=== PATIENT | female | born 1980 | race Caucasian/White ===

== ENCOUNTER 2018-05-29 13:53 | Emergency (ER) | payer MEDICAID, SELFPAY ==
[2018-05-29 13:54] VITALS: BP 127/89; PULSE 110; RESP 16; TEMP 36.2; O2SAT 99; BMI 24.4
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
[2018-05-29] MEDS: predniSONE 20 MG Tablet 40 MG PO (14:17)
[2018-05-29 14:27] VITALS: PULSE 116; RESP 18; O2SAT 99
== END 2018-05-29 14:32 | disposition home or self-care (01) ==
LOC: ED 14:07
PROVIDERS: Emergency Provider Emergency Medicine
DX: L30.9 Dermatitis, unspecified (principal); Z72.0 Tobacco use
CPT/HCPCS: 99283

== ENCOUNTER 2019-02-15 18:12 | Emergency (ER) | payer MEDICAID, SELFPAY ==
[2019-02-15] VITALS (7 sets, daily range): BP systolic 92–146; BP diastolic 54–90; PULSE 82–112; RESP 16–18; TEMP 36.4–36.9; O2SAT 98–100; BMI 26.7
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
[2019-02-15 18:56] LABS: Absolute Lymphocyte Count 2.39 X10^3/uL (0.83-4.51); Absolute Neutrophil Count 4.6 X10^3/uL (2.0-7.7); Basophil# 0.03 X10^3/uL; Basophil% 0.4 % (0-1); Eosinophil# 0.08 X10^3/uL; Hematocrit 39.4 % (37-47); Hemoglobin 12.3 g/dL (12.0-15.0); Lymphocyte # 2.39 X10^3/ul (4.0); Lymphocyte % 31.2 % (19-41); Mean Corp Hgb Conc 31.2 g/dL (32-36); Mean Corpuscular Hgb 28.9 pg (27.0-32.0); Mean Corpuscular Volume 92.7 fL (81-99); Mean Platelet Vol. 10.1 fl (6.2-12.0); Monocyte% 6.5 % (0-10); NRBC Flagged by Analyzer 0 % (0-5); Neutrophil # 4.64 X10^3/uL (2.7-7.7); Neutrophil % 60.6 % (47-70); Platelet Count 277 K/mm3 (150-450); RBC Distribution Width CV 13.6 % (11.6-14.6); RBC Distribution Width SD 45.9 fl (35.1-43.9); Red Blood Count 4.25 M/mm3 (4.2-5.4); White Blood Count 7.7 K/mm3 (4.4-11.0)
[2019-02-15 18:57] LABS: Amphetamine Urine VISTA POSITIVE (<1000 ng/mL); Barbiturate Urine VISTA NEGATIVE (< 200 ng/mL); Benzodiazepine Urine VISTA NEGATIVE (< 200 ng/mL); Cocaine Urine VISTA NEGATIVE (< 300 ng/mL); Ecstacy Urine VISTA NEGATIVE (< 500 ng/mL); Methadone Urine VISTA NEGATIVE (< 300 ng/mL); PCP Urine VISTA NEGATIVE (< 25 ng/mL); THC Urine VISTA NEGATIVE (< 50 ng/mL); Vista UDS pH Range 6
[2019-02-15 19:44] LABS: Internal QC Validated? YES +Cl - CLEAR BKGD; Pregnancy, Serum, hCG Quali. NEGATIVE Negative
[2019-02-15 19:47] LABS: Anion Gap 4 (5-15); BUN 10 mg/dL (7-18); BUN/Creat Ratio 13.5 RATIO (10-20); Calcium,Total 9.5 mg/dL (8.5-10.1); Chloride 106 mmol/L (98-107); Creatinine, Serum 0.74 mg/dL (0.55-1.02); EST Glomerular Filtration Rate 93 mL/min (>60); Est Glom Filt Rate - Afr Amer 113 mL/min (>60); Estimated Creatinine Clearance 97.44 ml/min; Glucose 70 mg/dL (74-106); Potassium 4.1 mmol/L (3.5-5.1); Sodium Level 140 mmol/L (136-145)
[2019-02-15 20:01] LABS: Bedside Glucose 109 mg/dL (70-110)
--- NOTE | 2019-02-15 20:05 | NURSING ---
BEEN TRYING TO GET A HOLD OF SOMEONE FROM THE [facility] FOR THE PAST 30 MINUTES
--- NOTE | 2019-02-15 21:16 | NURSING ---
FINALLY GOT A HOLD OF SALOMON FROM [facility]
--- NOTE | 2019-02-16 00:20 | ED.RN ---
UPDATE GIVEN TO SUZANNA ON [facility] THAT RIDE WILL BE AT OUR FACILITY IN A LITTLE OVER AN HOUR. RN VERBALIZED UNDERSTANDING. NO FURTHER QUESTIONS OR CONCERNS
[2019-02-16 00:58] VITALS: RESP 17
[2019-02-16 01:15] VITALS: BP 116/74; PULSE 82; RESP 18; O2SAT 100
[2019-02-16 01:16] VITALS: BP 116/74; PULSE 82; RESP 18; O2SAT 100
== END 2019-02-16 01:18 ==
LOC: ED 18:56
PROVIDERS: Emergency Provider Emergency Medicine
DX: R45.851 Suicidal ideations (principal); F32.9 Major depressive disorder, single episode, unspecified; F15.90 Other stimulant use, unspecified, uncomplicated; Z72.0 Tobacco use
CPT/HCPCS: 80048; 80307; 80320; 82962; 84703; 85025; 99285; G0480

== ENCOUNTER 2019-04-02 17:38 | Emergency (ER) | payer MEDICAID, SELFPAY ==
[2019-02-15 18:13] VITALS: BMI 26.7
[2019-04-02 17:40] VITALS: BP 110/78; PULSE 105; RESP 20; TEMP 36.4; O2SAT 98; BMI 30.9
[2019-04-02 18:29] VITALS: O2SAT 98
[2019-04-02 18:40] VITALS: BP 119/98; PULSE 86; RESP 16; O2SAT 97
--- NOTE | 2019-04-02 19:00 | RAD_ITS ---
STUDY: X-RAY CHEST REASON FOR EXAM: Female, 39 years old. COUGH TECHNIQUE: PA and lateral views of the chest. COMPARISON: None. FINDINGS: Cardiac silhouette unremarkable. Pulmonary vascularity unremarkable. Aorta unremarkable. No focal airspace opacities. No pleural effusions. Upper abdomen unremarkable. Osseous structures intact. No pneumothorax. RAD/Chest PA and Lateral IMPRESSION: No acute cardiopulmonary findings Electronically Signed: Kurt Cotton, at 19:56 EST Tel , Service support ,
--- NOTE | 2019-04-02 19:12 | ED.DCSUM_ITS ---
- ER Visit Summary Date of Service: 04/02/19 Chief Complaint: Cough History of Present Illness: The patient is a 39 F with no primary care physician. She reports she has a cough began 2 days ago. Is productive yellow sputum without blood. She reports that she had a similar episode 2 weeks ago and was placed on a Z-Willis, albuterol MDI, and 10 days of steroids. She does smoke a pack per day. Physical Examination: Vitals: Stable. Afebrile. General: Well-nourished and well-developed. Head: Normocephalic atraumatic. Neck: Supple, no lymphadenopathy. No JVD. Nontender. Cardiovascular: Regular rate and rhythm. No murmurs. Respiratory: No respiratory distress. Clear to auscultation bilaterally. Abdominal: Soft, nontender, nondistended, normal bowel sounds. No guarding, rebound, or peritoneal signs. Back: Nontender. Extremities: Nontender, no edema. Skin: Normal color, no rash. Neurologic: Alert and oriented ?3. Cranial nerves II through XII are intact. Normal strength and sensation. Psych: Normal affect. Test Results: Chest x-ray is normal. Emergency Department Course and Treatment: Patient is resting comfortably. She is not wheezing at this time. Treatment Plan: I do not think at a another course of antibiotics is indicated. However, she is given a prescription for another taper of prednisone and another albuterol MDI. Instructed follow-up Dr. Acosta in 1 week if not improving. Return to the emergency department for any worsening symptoms. Disposition: To home in improved and stable condition. Impression: 1. URI. 2. Tobacco abuse. This note was generated with [employer] dictation software. It may contain incorrect words, spelling, and punctuation that were not noted in review of the chart prior to signing ED Disposition - Plan for ED Patient: Disposition: Home or Assisted Living Instructions: BRONCHITIS, No Antibiotic (Adult) Prescriptions: Prednisone 10 mg PO DAILY #63 tab Prescription Printed Albuterol Inhaler [Ventolin Hfa] 1 - 2 puff INHALATION Q4H PRN PRN #1 inhaler PRN Reason: Wheezing Prescription Printed Referrals: Shena Acosta DO [STAFF PHYSICIAN] - 1 Week if not improving
[2019-04-02 19:22] VITALS: RESP 16
--- NOTE | 2019-04-02 19:22 | ED.RN ---
REVIEWED D/C INSTRUCTIONS, FOLLOW UP CARE, PRESCRIPTIONS, AND S/S THAT WOULD WARRANT A RETURN TO THE ED WITH PT. PT VERBALIZED AN UNDERSTANDING AND DENIES FURTHER QUESTIONS FOR THIS RN PT SKIN P/W/D, RESP EVEN AND UNLABORED, PT A&O X 3, NO DISTRESS NOTED. PT AMBULATED OUT OF ED, GAIT STEADY.
== END 2019-04-02 19:24 | disposition home or self-care (01) ==
LOC: ED 18:46
PROVIDERS: Emergency Provider Emergency Medicine
DX: J06.9 Acute upper respiratory infection, unspecified (principal); F31.9 Bipolar disorder, unspecified; F20.9 Schizophrenia, unspecified; Z79.899 Other long term (current) drug therapy; F17.200 Nicotine dependence, unspecified, uncomplicated
CPT/HCPCS: 71046; 99282

== ENCOUNTER 2019-10-22 14:15 | Emergency (ER) | payer MEDICAID, SELFPAY ==
[2019-10-22 14:16] VITALS: BP 141/73; PULSE 94; RESP 16; TEMP 36.6; O2SAT 100; BMI 33.3
[2019-10-22 14:22] VITALS: BP 141/73; PULSE 94; RESP 16; TEMP 36.6; O2SAT 100; BMI 33.3
--- NOTE | 2019-10-22 14:31 | ED.VISSUMM ---
- ER Visit Summary Date of Service: 10/22/19 Chief Complaint: Back pain History of Present Illness: The patient is a 39 F who presents with back pain. She has had this for 2 days. Is on the left lower side of her back. It radiates on her left leg. Movement makes it worse. Nothing really makes it better. She tried no medications for it at home. She denies any fevers. She denies any previous back issues. No bowel or bladder incontinence. Physical Examination: Vital signs reviewed. HEENT exam unremarkable. Heart is regular rate and rhythm without murmurs. Lungs are clear to auscultation. Abdomen is soft and nontender. Back exam shows tenderness in the left lumbar paraspinal region. No midline tenderness. Extremities reveal no edema. Skin exam normal. Neurologic exam normal. Test Results: None performed Emergency Department Course and Treatment: Patient will be treated with Norflex and Toradol here. I will send her home with steroids. I will also give her naproxen and Flexeril. She will follow-up with her PCP. Treatment Plan: [] Disposition: Discharge Impression: Sciatica, left This note was generated with [employer] dictation software. It may contain incorrect words, spelling, and punctuation that were not noted in review of the chart prior to signing ED Disposition - Plan for ED Patient: Disposition: Home or Assisted Living Instructions: ED LUMBAR SPRAIN/STRAIN Prescriptions: Prednisone [Deltasone] 40 mg PO DAILY #10 tab Transmission Status: Pending to [facility] cycloBENZAPRine HCl [Flexeril] 10 mg PO TID PRN #20 tab PRN Reason: Muscle Spasm Transmission Status: Pending to [facility] Naproxen [Naprosyn] 500 mg PO BID PRN #20 tab Transmission Status: Pending to [facility] Referrals: Care Physician,No Primary [Primary Care Provider] -
[2019-10-22] MEDS: Ketorolac 30 MG/ML Syringe IM (14:52)
[2019-10-22] MEDS: Orphenadrine 60 MG/2 ML Ampul IM (14:53)
[2019-10-22 15:40] VITALS: BP 130/79; PULSE 81; RESP 20; O2SAT 99
== END 2019-10-22 15:41 | disposition home or self-care (01) ==
LOC: ED 14:43
PROVIDERS: Emergency Provider Emergency Medicine
DX: M54.32 Sciatica, left side (principal); F17.200 Nicotine dependence, unspecified, uncomplicated
CPT/HCPCS: 96372; 99282

== ENCOUNTER 2019-10-29 12:37 | Emergency (ER) | payer MEDICAID, SELFPAY ==
[2019-10-29] VITALS (9 sets, daily range): BP systolic 134–158; BP diastolic 84–88; PULSE 63–102; RESP 16–18; TEMP 36.6; O2SAT 98–99; BMI 35.8
--- NOTE | 2019-10-29 13:02 | EKG12_ITS ---
Test Reason : MENTAL CLEARANCE Blood Pressure : / mmHG Vent. Rate : 062 BPM Atrial Rate : 062 BPM P-R Int : 154 ms QRS Dur : 082 ms QT Int : 408 ms P-R-T Axes : 030 009 017 degrees QTc Int : 414 ms Normal sinus rhythm Normal ECG Confirmed by ADELINE IRCO ([id number]), research editor RON RUIZ ([id number]) on 10/31/2019 9:00:55 AM Referred By: ANGUS Confirmed By:ADELINE RICO
--- NOTE | 2019-10-29 13:23 | ED.VIS.GEN ---
History of Present Illness Chief Complaint: Suicidal Informant: Patient Narrative: 39-year-old female with history of bipolar disorder presenting today with suicidal ideation. She states that she has been thinking about taking her own life by overdosing on her home medications which include Vistaril and Abilify. She states that she is currently depressed because she cannot see her son who is been [facility] [place] [facility]. She has not seen them for 2 months. They are not allowing visitations but she has been able to call. She states she has a significant history of suicide attempt about a year ago in which she tried to both cut her throat and then hang herself. She currently denies doing any drugs or alcohol. She has not made any attempts thus far over the last [address] feeling [address]. No homicidal ideation. Past Medical History - Allergies and Home Meds Allergies/Adverse Reactions: Allergies Penicillins [PCN] Allergy (Verified 10/29/19 12:44) Other venom-honey bee [bee venom (honey bee)] Allergy (Verified 10/29/19 12:44) Anaphylaxis pine Allergy (Uncoded 10/29/19 12:44) Rash tape Allergy (Uncoded 10/29/19 12:44) Rash Primary Care Physician: Care Physician,No Primary [Primary Care Provider] - Past Medical History: - - Bipolar disorder Surgical History: noncontributory Lives: Alone Smoking Status: Current every day smoker Alcohol: None Drugs: None Review of Systems General: Denies: Chills, Fever, Sweats Eyes: Denies: Visual changes - bilaterally, Diplopia ENT: Denies: Rhinorrhea, Sore throat Cardiovascular: Denies: Chest pain, Palpitations Respiratory: Denies: Dyspnea, Cough, Dyspnea on exertion Gastrointestinal: Denies: Abdominal pain, Nausea, Vomiting, Diarrhea, Melena, Hematochezia Genitourinary: Denies: Dysuria, Hematuria, Frequency Musculoskeletal: Denies: Back pain, Extremity Pain Skin: Denies: Rash, Wounds Psych: Reports: Suicidal thoughts, Suicidal ideations Physical Exam Vital Signs/Narrative: Vital Signs Temp Pulse Resp BP Pulse Ox 10/29/19 12:38 97.9 F 102 H 18 158/88 H 98 Inital Vital Signs reviewed: Yes General: Well nourished, No Acute Distress Head: Normocephalic, Atraumatic Eyes: Perrl ENT: Moist mucous membranes, No rhinorrhea Cardiovascular: Regular rate, Regular rhythm Respiratory: No distress, CTA bilaterally Abdomen: Soft Extremities: Nontender, No edema Skin: Normal color, No rash Neurological: Alert, Oriented x3 Psychological: - - Admits to suicidal thoughts with a plan to take pills. No homicidal ideation Diagnostic/Tx/Re-eval Clinical Impression(s) from Imaging Studies Chest X-Ray 10/29/19 13:35 IMPRESSION: Normal x-ray examination of the chest. Electronically Signed: Moisés Black, at 14:07 EDT , Service support , Laboratory Data 10/29/19 10/29/19 10/29/19 12:55 13:10 13:10 WBC 5.3 RBC 4.41 Hgb 12.6 Hct 40.1 MCV 90.9 MCH 28.6 MCHC 31.4 L RDW Std Deviation 45.7 H RDW Coeff of Megan 13.6 Plt Count 265 MPV 10.3 Immature Gran % (Auto) 0.600 Neut % (Auto) 55.1 Lymph % (Auto) 34.8 Jewell % (Auto) 6.7 Eos % (Auto) 2.1 Baso % (Auto) 0.7 Absolute Neuts (auto) 2.9 Absolute Lymphs (auto) 1.86 Nucleated RBC % 0 Sodium 141 Potassium 4.1 Chloride 111 H Carbon Dioxide 26.0 Anion Gap 4 L BUN 7 Creatinine 0.65 Estim Creat Clear Calc 101.34 Est GFR (MDRD) Af Amer 130 Est GFR (MDRD) Non-Af 107 BUN/Creatinine Ratio 10.7 Glucose 93 Calcium 8.7 Serum , Qual Urine Opiates Screen NEGATIVE Urine Methadone Screen NEGATIVE Ur Barbiturates Screen NEGATIVE Ur Phencyclidine Scrn NEGATIVE Ur Amphetamines Screen NEGATIVE U Methamphetamin-MDMA NEGATIVE U Benzodiazepines Scrn NEGATIVE Urine Cocaine Screen NEGATIVE U Cannabinoids Screen NEGATIVE Ur Drug Screen Comment Ethyl Alcohol 10/29/19 10/29/19 13:10 13:10 WBC RBC Hgb Hct MCV MCH MCHC RDW Std Deviation RDW Coeff of Megan Plt Count MPV Immature Gran % (Auto) Neut % (Auto) Lymph % (Auto) Jewell % (Auto) Eos % (Auto) Baso % (Auto) Absolute Neuts (auto) Absolute Lymphs (auto) Nucleated RBC % Sodium Potassium Chloride Carbon Dioxide Anion Gap BUN Creatinine Estim Creat Clear Calc Est GFR (MDRD) Af Amer Est GFR (MDRD) Non-Af BUN/Creatinine Ratio Glucose Calcium Serum , Qual NEGATIVE Urine Opiates Screen Urine Methadone Screen Ur Barbiturates Screen Ur Phencyclidine Scrn Ur Amphetamines Screen U Methamphetamin-MDMA U Benzodiazepines Scrn Urine Cocaine Screen U Cannabinoids Screen Ur Drug Screen Comment Ethyl Alcohol 6.0 - Rhythm Strip Rhythm Strip: Sinus Rhythm Rate: 62 - Medical Decision Making Patient presents with suicidal ideation with history of attempt. She does threaten to take her home medications and overdose. She has no homicidal ideation. Her blood work is normal. EKG is normal sinus rhythm without signs of ischemia. Urine toxicology is negative. Chest x-ray is normal. In the patient's history of suicide attempt and current plan I believe the patient needs to be inpatient. I did fill out a pink slip. Patient was kept on suicide precautions. Patient at this time is medically cleared for psychiatric facility. Impression: 1. Suicidal ideation ED Disposition - Plan for ED Patient: Disposition: Psychiatric Hospital or Unit Referrals: Care Physician,No Primary [Primary Care Provider] -
[2019-10-29 13:28] LABS: Absolute Lymphocyte Count 1.86 X10^3/uL (0.83-4.51); Absolute Neutrophil Count 2.9 X10^3/uL (2.0-7.7); Basophil# 0.04 X10^3/uL; Basophil% 0.7 % (0-1); Eosinophil# 0.11 X10^3/uL; Eosinophils% 2.1 % (0-5); Hematocrit 40.1 % (37-47); Hemoglobin 12.6 g/dL (12.0-15.0); Lymphocyte # 1.86 X10^3/ul (4.0); Lymphocyte % 34.8 % (19-41); Mean Corp Hgb Conc 31.4 g/dL (32-36); Mean Corpuscular Hgb 28.6 pg (27.0-32.0); Mean Corpuscular Volume 90.9 fL (81-99); Mean Platelet Vol. 10.3 fl (6.2-12.0); Monocyte# 0.36 X10^3/uL; Monocyte% 6.7 % (0-10); NRBC Flagged by Analyzer 0 % (0-5); Neutrophil # 2.94 X10^3/uL (2.7-7.7); Neutrophil % 55.1 % (47-70); Platelet Count 265 K/mm3 (150-450); RBC Distribution Width CV 13.6 % (11.6-14.6); RBC Distribution Width SD 45.7 fl (35.1-43.9); Red Blood Count 4.41 M/mm3 (4.2-5.4); White Blood Count 5.3 K/mm3 (4.4-11.0)
[2019-10-29 13:32] LABS: Amphetamine Urine VISTA NEGATIVE (<1000 ng/mL); Barbiturate Urine VISTA NEGATIVE (< 200 ng/mL); Benzodiazepine Urine VISTA NEGATIVE (< 200 ng/mL); Cocaine Urine VISTA NEGATIVE (< 300 ng/mL); Ecstacy Urine VISTA NEGATIVE (< 500 ng/mL); Methadone Urine VISTA NEGATIVE (< 300 ng/mL); PCP Urine VISTA NEGATIVE (< 25 ng/mL); THC Urine VISTA NEGATIVE (< 50 ng/mL); Vista UDS pH Range 6
[2019-10-29 13:34] LABS: Internal QC Validated? YES +Cl - CLEAR BKGD; Pregnancy, Serum, hCG Quali. NEGATIVE Negative
--- NOTE | 2019-10-29 13:35 | RAD_ITS ---
STUDY: X-RAY CHEST REASON FOR EXAM: Female, 39 years old. Medical clearance for mental health TECHNIQUE: Single AP portable view of the chest. COMPARISON: Comparison is made with prior study dated 10/01/2019 FINDINGS: The lungs are clear and expanded. There is no demonstrated pleural abnormality. Normal size heart. Normal mediastinum and fidelia. Normal visualized pulmonary arteries. Normal visualized aortic arch and descending thoracic aorta. Normal visualized thoracic spine. Normal visualized ribs, clavicles, and shoulders. There is no demonstrated abnormality of the visualized soft tissue structures of the upper abdomen. RAD/Chest 1 View (Portable) IMPRESSION: Normal x-ray examination of the chest. Electronically Signed: Moisés Black, at 14:07 EDT , Service support ,
[2019-10-29 13:36] LABS: Anion Gap 4 (5-15); BUN 7 mg/dL (7-18); BUN/Creat Ratio 10.7 RATIO (10-20); Calcium,Total 8.7 mg/dL (8.5-10.1); Chloride 111 mmol/L (98-107); Creatinine, Serum 0.65 mg/dL (0.55-1.02); EST Glomerular Filtration Rate 107 mL/min (>60); Est Glom Filt Rate - Afr Amer 130 mL/min (>60); Estimated Creatinine Clearance 101.34 ml/min; Glucose 93 mg/dL (74-106); Potassium 4.1 mmol/L (3.5-5.1); Sodium Level 141 mmol/L (136-145)
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
--- NOTE | 2019-10-29 14:45 | CM.ED ---
SOCIAL WORK Referral called and faxed to [facility]. Awaiting acceptance at this time. Zachariah Martin, EVENTS TRAFFIC CONTROLLER, CHEESE SPRAYER
--- NOTE | 2019-10-29 15:52 | CM.ED ---
SOCIAL WORK Updated by intake at [facility] on limited beds. Referral faxed and called to [facility] at [facility]. Awaiting acceptance at this time.
--- NOTE | 2019-10-29 17:05 | CM.ED ---
SOCIAL WORK Patient accepted to [facility] by Dr. Sánchez to the [facility] Unit. Nurse to call report to . Verified [place] [facility] has been completed for [facility], date and time. [facility] to set up transport. Staff and patient updated. Zachariah Martin, AIRCRAFT INSTRUMENT ENGINEER, SHOP FITTER
--- NOTE | 2019-10-29 17:15 | NURSING ---
CALLED PHYSICANS, ETA IS 20 MIN
--- NOTE | 2019-10-29 17:22 | NURSING ---
[facility] CALLED. ETA IS NOW ABOUT 183
== END 2019-10-29 18:44 ==
PROVIDERS: Emergency Provider Student in an Organized Health Care Education/Training Program
DX: R45.851 Suicidal ideations (principal); F17.200 Nicotine dependence, unspecified, uncomplicated; Z91.5 Personal history of self-harm
CPT/HCPCS: 36415; 71045; 80048; 80307; 80320; 84703; 85025; 93005; 99285; G0480

== ENCOUNTER 2019-11-13 19:50 | Emergency (ER) | payer MEDICAID, SELFPAY ==
[2019-10-29 12:38] VITALS: BMI 35.8
[2019-11-13 19:50] VITALS: BP 140/80; PULSE 118; RESP 18; TEMP 36.6; O2SAT 98; BMI 34.9
[2019-11-13 20:59] VITALS: RESP 16
[2019-11-13 21:08] LABS: Absolute Lymphocyte Count 3.09 X10^3/uL (0.83-4.51); Absolute Neutrophil Count 6.5 X10^3/uL (2.0-7.7); Basophil# 0.05 X10^3/uL; Basophil% 0.5 % (0-1); Eosinophil# 0.08 X10^3/uL; Eosinophils% 0.8 % (0-5); Hematocrit 38.6 % (37-47); Hemoglobin 12.5 g/dL (12.0-15.0); Lymphocyte # 3.09 X10^3/ul (4.0); Lymphocyte % 29.9 % (19-41); Mean Corp Hgb Conc 32.4 g/dL (32-36); Mean Corpuscular Hgb 29.3 pg (27.0-32.0); Mean Corpuscular Volume 90.4 fL (81-99); Mean Platelet Vol. 10.2 fl (6.2-12.0); Monocyte# 0.63 X10^3/uL; Monocyte% 6.1 % (0-10); NRBC Flagged by Analyzer 0 % (0-5); Neutrophil # 6.45 X10^3/uL (2.7-7.7); Neutrophil % 62.2 % (47-70); Platelet Count 308 K/mm3 (150-450); RBC Distribution Width CV 13.6 % (11.6-14.6); Red Blood Count 4.27 M/mm3 (4.2-5.4); White Blood Count 10.4 K/mm3 (4.4-11.0)
[2019-11-13 21:09] LABS: Alcohol, Blood (Medical)-Serum < 3.0 mg/dL
[2019-11-13 21:11] LABS: Anion Gap 7 (5-15); BUN 18 mg/dL (7-18); BUN/Creat Ratio 18.3 RATIO (10-20); Calcium,Total 9.1 mg/dL (8.5-10.1); Chloride 110 mmol/L (98-107); Creatinine, Serum 0.98 mg/dL (0.55-1.02); EST Glomerular Filtration Rate 67 mL/min (>60); Est Glom Filt Rate - Afr Amer 81 mL/min (>60); Estimated Creatinine Clearance 70.04 ml/min; Glucose 120 mg/dL (74-106); Potassium 3.7 mmol/L (3.5-5.1); Sodium Level 141 mmol/L (136-145)
[2019-11-13 21:12] LABS: Amphetamine Urine VISTA NEGATIVE (<1000 ng/mL); Barbiturate Urine VISTA NEGATIVE (< 200 ng/mL); Benzodiazepine Urine VISTA NEGATIVE (< 200 ng/mL); Cocaine Urine VISTA NEGATIVE (< 300 ng/mL); Ecstacy Urine VISTA POSITIVE (< 500 ng/mL); Methadone Urine VISTA NEGATIVE (< 300 ng/mL); PCP Urine VISTA NEGATIVE (< 25 ng/mL); THC Urine VISTA NEGATIVE (< 50 ng/mL); Vista UDS pH Range 5
[2019-11-13 21:15] LABS: Internal QC Validated? YES +Cl - CLEAR BKGD; Pregnancy, Serum, hCG Quali. NEGATIVE Negative
[2019-11-13 21:47] VITALS: RESP 16
[2019-11-13 22:26] VITALS: RESP 18
--- NOTE | 2019-11-13 22:39 | ED.RN ---
crisis paged to see patient at this time
[2019-11-13 23:02] VITALS: BP 136/70; PULSE 95; RESP 20; O2SAT 98
--- NOTE | 2019-11-13 23:28 | ED.RN ---
crisis called back and they are aware of the patient. there is one patient ahead of her at this time
[2019-11-14] VITALS (12 sets, daily range): BP systolic 105–120; BP diastolic 72–78; PULSE 82–86; RESP 14–20; O2SAT 97–99
--- NOTE | 2019-11-14 00:47 | ED.DCSUM_ITS ---
- ER Visit Summary Date of Service: 11/14/19 Chief Complaint: Suicidal ideation History of Present Illness: The patient is a 39 F presenting with suicidal ideation. Patient states this started today. She states she has been under a lot of stress. States her child was recently taken away from his dad. She has plan to overdose. She was admitted recently to a psychiatric facility in [place]. She was discharged last week. She has a history of previous suicide attempt with hanging 1 year ago. She states her medication is not helping. She denies other complaints. Physical Examination: Vitals are stable. Patient is afebrile. Alert no acute distress. HEENT exam is unremarkable. Neck is supple. Lungs are clear and equal bilaterally. Heart is regular rate and rhythm. Abdomen is soft nontender nondistended. Extremities are unremarkable. Skin is warm and dry. No focal neurologic deficit. Depressed affect, suicidal ideation Remainder of exam is unremarkable. Emergency Department Course and Treatment: CBC, chemistries unremarkable. hCG negative. Tox positive for methamphetamine. Alcohol negative. Discussed with counseling center for evaluation. Disposition: Per counseling center Impression: Suicidal ideation This note was generated with [employer] dictation software. It may contain incorrect words, spelling, and punctuation that were not noted in review of the chart p rior to signing ED Disposition - Plan for ED Patient: Referrals: Care Physician,No Primary [Primary Care Provider] -
--- NOTE | 2019-11-14 01:08 | ED.RN ---
crisis on the phone with the patient at this time
--- NOTE | 2019-11-14 01:19 | ED.RN ---
[facility] is working on placement of patient at this time
--- NOTE | 2019-11-14 03:54 | EKG12_ITS ---
Test Reason : MENTAL HEALTH Blood Pressure : / mmHG Vent. Rate : 074 BPM Atrial Rate : 074 BPM P-R Int : 164 ms QRS Dur : 080 ms QT Int : 400 ms P-R-T Axes : 017 039 040 degrees QTc Int : 444 ms Normal sinus rhythm Normal ECG Confirmed by NED MARIE, WAN ([id number]), acquisition editor ERIN TRUJILLO ([id number]) on 11/18/2019 12:53:38 PM Referred By: JACQUELYN Confirmed By:WAN MARINO MD
--- NOTE | 2019-11-14 03:57 | ED.RN ---
patient has been refereed to [facility] they are requesting additional information and testing CK level, EKG, Coivd 19 test.
--- NOTE | 2019-11-14 04:15 | ED.RN ---
NEW ORDERS ADDED ON. PT UPSET THAT SHE WAS AWAKENED FOR MORE TESTING. PT DID NOT WANT TO ROLL ONTO HER BACK. I'VE BEEN HERE FOR 11 HRS AND YOU'RE JUST NOW DOING TESTING. I'LL JUST LEAVE, I DON'T WANT TO GET TRANSFERRED, I DON'T KNOW WHY MY SISTER BROUGHT ME HERE, I'LL JUST LEAVE. GAVE PT EDUCATION AND EMOTIONAL SUPPORT. PT EVENTUALLY ALLOWED EKG, COVID TESTING AND VITAL SIGNS.
[2019-11-14 04:27] LABS: CPK Total, Creatine Kinase 82 U/L (26-192)
[2019-11-14 05:44] LABS: Probe Check PASS; Specimen Processing Control PASS
--- NOTE | 2019-11-14 05:48 | ED.RN ---
requested test results faxed to [facility] at this time
--- NOTE | 2019-11-14 08:48 | ED.RN ---
faxed pink slip to [facility]
[2019-11-14] MEDS: buPROPion (XL) 300 MG TABLET.XL PO (09:36)
--- NOTE | 2019-11-14 10:01 | ED.RN ---
REPORT TO [facility]. PT SKIN P/W/D, RESP EVEN AND UNLABORED, PT A&O X 3, NO DISTRESS NOTED.
--- NOTE | 2019-11-14 10:12 | ED.RN ---
PT OUT OF ED WITH [facility] FOR TRANSPORT TO [facility].
== END 2019-11-14 10:13 ==
PROVIDERS: Emergency Medicine; Emergency Provider Emergency Medicine
DX: R45.851 Suicidal ideations (principal); F17.200 Nicotine dependence, unspecified, uncomplicated; F32.9 Major depressive disorder, single episode, unspecified
CPT/HCPCS: 80048; 80307; 80320; 82550; 84703; 85025; 87635; 93005; 99285; C9803; G0480; U0003